=== PATIENT | female | born 1945 | race Caucasian/White ===

== ENCOUNTER 2021-07-31 17:47 | Emergency (ER) | payer OTHER ==
[~2021-07-31] VITALS: Ht 162.6 cm; Wt 95.2 kg
[~2021-07-31 17:47] MED LIST: ALBU90OI INH; ASPI81CH PO; Aspirin EC81 MG PO; CALCAVITD PO; CALCAVITDA; GUAIFENESIN1200 MG PO; HYDCHL12.5 PO; IBUP600 PO; LOSA25 PO; LOSA50 PO; Lopressor 50 mg50 MG PO; MEGA MULTI FOR1 EACH PO; MULVIT PO; NAPR500 PO; OMEGA 3-6-9 11200 MG; OMEGA 3-6-9 11200 MG PO; POTCHL20ER PO; PRODEXEL PO; Prinivil10 MG PO; Zithromax250 MG PO
== END 2021-07-31 18:03 | disposition home or self-care (01) ==
LOC: ER 17:47
DX: R00.2 Palpitations (principal); I10 Essential (primary) hypertension; Z79.82 Long term (current) use of aspirin; Z79.899 Other long term (current) drug therapy; Z88.0 Allergy status to penicillin; Z88.5 Allergy status to narcotic agent; Z88.8 Allergy status to other drugs, medicaments and biological substances
CPT/HCPCS: 99284